=== PATIENT | female | born 1960 | race Caucasian/White ===

== ENCOUNTER → 2016-11-28 | Day surgery (SDC) | payer OTHER, MEDICARE ==
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
== END ==
LOC: STS 04:23
DX: A63.0 Anogenital (venereal) warts (principal); E78.5 Hyperlipidemia, unspecified; Z85.43 Personal history of malignant neoplasm of ovary; Z85.41 Personal history of malignant neoplasm of cervix uteri; Z87.891 Personal history of nicotine dependence
CPT/HCPCS: 88305; C9290; J0690; J2250